=== PATIENT | female | born 1965 | race Caucasian/White ===

== ENCOUNTER → 2016-12-13 | Outpatient (CLI) | payer MEDICARE, OTHER ==
[~2016-12-13] MED LIST: ACETAMINOPHEN PO; ADVAIR 250-501 EACH INH; ALBUTEROL 0.5ML INH; ALBUTEROL17 GM INH; ALLERGY RELIEF25 MG PO; ASTELIN137 MCG INH; BENZONATATE PO; CIPRO PO; COMBIVENT U/D3 M2; COMBIVENT14.7 GM INH; DUONEB 2.5-0.5 M3 ML NEB; FLEXERIL PO; FLEXERIL10 MG PO; GABAPENTIN300 MG PO; GABAPENTIN400 MG PO; IPRATR-ALBUTEROL3 ML INH; LODINE400 M1 PO; LORTAB 101 TAB 10/5 PO; LORTAB 5-325 M1 EACH PO; LORTAB 5/500 TA1 TA1 PO; MAGNESIUM200 MG PO; MOBIC PO; MOTRIN400 MG PO; NAPROSYN500 MG PO; NASONEX17 GM; NEURONTIN PO; OMEPRAZOLE20 M2 PO; PHENERGAN25 MG PO; PREDNISONE PO; ROBAXIN PO; ROBAXIN500 MG; ROBITUSSIN A-C S5 ML PO; SYMBICORT; SYMBICORT INH; VALIUM10 MG PO; VIBRAMYCIN100 M1 PO; VITAMIN B-1000 MCG/1 IJ; ZALEPLON10 MG PO; ZANTAC150 MG PO; ZITHROMAX PO; ZYPREXA10 MG PO; ZYRTEC10 M2 PO
--- NOTE | ~2016-12-13 | EE ---
Unit #: [id number] #: [id number] Patient: MARCOS INMAN [id number] [address] [address] [id number] O MR#: [id number] NAME: MARCOS INMAN : 1965 SEX: F STUDY DATE/TIME: UNIT: [facility] ROOM: STUDY DESCRIPTION: EEG Attending Physician: Kimo Nash II., M.D. Primary Care Physician: Chintan Celis M.D. NEURODIAGNOSTICS REPORT EXAM EEG REASON FOR STUDY Seizures. TECH Gaby TECHNICAL INFORMATION This is a routine EEG performed using the standard International 10-20 System of electrode placement. Photic stimulation was performed. Hyperventilation was not performed. REPORT Throughout the entire study, the best background rhythm seen is approximately 11 Hz. This rhythm is seen in both posterior head regions symmetrically and does attenuate to eye opening and closure. Photic stimulation was performed which failed to reproduce any epileptiform abnormalities. However, a good photic driving response was seen. Hyperventilation was not performed. There was no sleep recorded during the EEG. INTERPRETATION This is a normal awake EEG. A normal EEG does not rule out the possibility of a seizure disorder. Clinical correlation is advised. Dictated by... Kimo Nash II., M.D. GWS/malissa TD: 12/16/2016 13:16 JOB #: [id number] Unit #: [id number] #: [id number] Patient: MARCOS INMAN NEURODIAGNOSTICS REPORT Page 1 of 1 X NEURODIAGNOSTICS REPORT
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
== END | disposition home or self-care (01) ==
LOC: CMRI 06:37
DX: R56.9 Unspecified convulsions (principal); R90.82 White matter disease, unspecified
CPT/HCPCS: 70553; 95816; A9577